=== PATIENT | male | born 1955 | race Caucasian/White ===

== ENCOUNTER 2019-05-02 16:37 | Emergency (ER) | payer MEDICARE ==
--- NOTE | 2019-05-02 18:16 | ED ---
Upper Extremity Pain - HPI Summary HPI Summary: This patient is a 63 year old M presenting to ED with a chief complaint of right hand/wrist pain and swelling since 1500 today. Patient was shopping at [employer] when a shelf fell on the lateral side of his right wrist. The patient rates the pain 7/10 in severity. Symptoms aggravated by nothing. Symptoms alleviated by nothing. Patient reports tingling and numbness in second and third digit and pain upon turning the wrist, bleeding from wrist. Patient denies fever. Patient is unsure of his last tetanus vaccine. PMHx of CAD, HTN, Afib, GERD, anxiety. PSHx of cholecystectomy. Patient denies tobacco and substance use. - History of Current Complaint Chief Complaint: EDExtremityUpper Stated Complaint: RT HAND INJURY PER PT Time Seen by Provider: 05/02/19 17:09 Hx Obtained From: Patient Mechanism Of Injury: Blunt Trauma Onset/Duration: Started Hours Ago - 1500 today, Traumatic, Still Present Severity Initially: Moderate Severity Currently: Moderate Pain Location: Wrist - Right, Hand - Right Aggravating Factor(s): Twisting Alleviating Factor(s): Nothing Associated Signs & Symptoms: Positive: Swelling, Numbness/Tingling. Negative: Fever - Allergies/Home Medications Allergies/Adverse Reactions: Allergies Allergy/AdvReac Type Severity Reaction Status Date / Time hydromorphone [From Dilaudid] Allergy Vomiting Verified 05/02/19 16:46 lisinopril Allergy tongue,lip Verified 05/02/19 16:46 swelling oxycodone [From Percocet] Allergy Vomiting Verified 05/02/19 16:46 PMH/Surg Hx/FS Hx/Imm Hx Endocrine/Hematology History: Reports: Hx Anticoagulant Therapy Denies: Hx Blood Disorders, Hx Blood Transfusions, Hx Bone Marrow Disease, Hx Diabetes, Hx Systemic Lupus Erythematosus, Hx Sickle Cell Disease, Hx Thyroid Disease, Hx Anemia, Hx Unexplained Bleeding Cardiovascular History: Reports: Hx Angina, Hx Coronary Artery Disease, Hx Hypertension, Hx Valvular Heart Disease - valce replacement Denies: Hx Aneurysm, Hx Angioplasty, Hx Auto Implanted Cardiovert Defib, Hx Cardiac Arrest, Hx Cardiomegaly, Hx Congenital Heart Disease, Hx Congestive Heart Failure, Hx Deep Vein Thrombosis, Hx Embolism, Hx Hypercholesterolemia, Hx Hypotension, Hx Pacemaker/ICD, Hx Peripheral Vascular Disease, Hx Rheumatic Fever, Hx Syncope, Other Cardiovascular Problems/Disorders GI History: Reports: Hx Gall Bladder Disease History: Denies: Hx Renal Disease Musculoskeletal History: Reports: Hx Arthritis, Hx Back Problems - back injury Sensory History: Reports: Hx Contacts or Glasses - reading Denies: Hx Hearing Aid Opthamlomology History: Reports: Hx Contacts or Glasses - reading Neurological History: Reports: Hx Headaches Psychiatric History: Reports: Hx Anxiety Denies: Hx Panic Disorder - Surgical History Surgery Procedure, Year, and Place: GALLBLADDER REMOVED 1989. AORTIC VALVE 04/12. OPEN HEART SURGERY 2007 Hx Anesthesia Reactions: No Infectious Disease History: No Infectious Disease History: Denies: Hx Clostridium Difficile, Hx Hepatitis, Hx Human Immunodeficiency Virus (HIV), Hx of Known/Suspected MRSA, Hx Shingles, Hx Tuberculosis, Hx Known/ Suspected VRE, Hx Known/Suspected VRSA, Traveled Outside the [place] in Last 30 Days - Family History Known Family History: Positive: Non-Contributory - Social History Alcohol Use: Rare Alcohol Amount: once every few months Hx Substance Use: No Substance Use Type: Reports: None Hx Tobacco Use: Yes Smoking Status (MU): Former Smoker Type: Cigarettes Amount Used/How Often: 2 PPD Length of Time of Smoking/Using Tobacco: 30 years Have You Smoked in the Last Year: No Review of Systems Negative: Fever Positive: Arthralgia - Right hand and wrist pain All Other Systems Reviewed And Are Negative: Yes Physical Exam - Summary Physical Exam Summary: VITAL SIGNS: Reviewed. GENERAL: Patient is a well-developed and nourished male who is lying comfortable in the stretcher. Patient is not in any acute respiratory distress. HEAD AND FACE: No signs of trauma. No ecchymosis, hematomas or skull depressions. No sinus tenderness. EYES: PERRLA, EOMI x 2, No injected conjunctiva, no nystagmus. EARS: Hearing grossly intact. Ear canals and tympanic membranes are within normal limits. MOUTH: Oropharynx within normal limits. NECK: Supple, trachea is midline, no adenopathy, no JVD, no carotid bruit, no c- spine tenderness, neck with full ROM. CHEST: Symmetric, no tenderness at palpation LUNGS: Clear to auscultation bilaterally. No wheezing or crackles. CVS: Regular rate and rhythm, S1 and S2 present, no murmurs or gallops appreciated. ABDOMEN: Soft, non-tender. No signs of distention. No rebound no guarding, and no masses palpated. Bowel sounds are normal. EXTREMITIES: FROM in all major joints, no edema, no cyanosis or clubbing. NEURO: Alert and oriented x 3. No acute neurological deficits. Speech is normal and follows commands. SKIN: abrasion on right wrist Triage Information Reviewed: Yes Vital Signs On Initial Exam: Initial Vitals Temp Pulse Resp BP Pulse Ox 98.4 F 79 16 149/86 94 05/02/19 16:42 05/02/19 16:42 05/02/19 16:42 05/02/19 16:42 05/02/19 16:42 Vital Signs Reviewed: Yes Diagnostics - Vital Signs Vital Signs Temp Pulse Resp BP Pulse Ox 05/02/19 16:42 98.4 F 79 16 149/86 94 - Laboratory Lab Statement: Any lab studies that have been ordered have been reviewed, and results considered in the medical decision making process. - Radiology Right wrist XR Radiology Interpretation Completed By: Radiologist Summary of Radiographic Findings: Degenerative changes of the right hand and wrist as described above without radiographically apparent acute fracture or dislocation. Dr. Zimmerman has reviewed this radiology report. Right hand XR Radiology Interpretation Completed By: Radiologist Summary of Radiographic Findings: Degenerative changes of the right hand and wrist as described above without radiographically apparent acute fracture or dislocation. Dr. Zimmerman has reviewed this radiology report. Course/Dx - Course Assessment/Plan: This patient is a 63 year old M presenting to ED with a chief complaint of right hand/wrist pain and swelling since 1500 today. Patient was shopping at [employer] when a shelf fell on the lateral side of his right wrist. The patient rates the pain 7/10 in severity. Symptoms aggravated by nothing. Symptoms alleviated by nothing. Patient reports tingling and numbness in second and third digit and pain upon turning the wrist, bleeding from wrist. Patient denies fever. Patient is unsure of his last tetanus vaccine. PMHx of CAD, HTN, Afib, GERD, anxiety. PSHx of cholecystectomy. Patient denies tobacco and substance use. X ray of hand and wrist impression: Degenerative changes of the right hand and wrist as described above without radiographically apparent acute fracture or dislocation. Patient has an a small abrasion in the right wrist and he is due for a tetanus vaccine. Last tetanus was approximately 10 years ago. At this point I discussed my physical exam, findings and test results with the patient and the need to follow-up with the primary care physician. Patient understands and agrees. - Diagnoses Provider Diagnoses: Wrist pain Discharge - Sign-Out/Discharge Documenting (check all that apply): Patient Departure - Discharge Patient Received Moderate/Deep Sedation with Procedure: No - Discharge Plan Condition: Stable Disposition: HOME Patient Education Materials: Wrist Injury (ED) Referrals: Jericho Grajeda MD [Primary Care Provider] - 3 Days Additional Instructions: FOLLOW UP WITH YOUR PRIMARY CARE PROVIDER WITHIN ONE WEEK. RETURN TO THE ED FOR ANY WORSENING OR NEW SYMPTOMS. - Billing Disposition and Condition Condition: STABLE Disposition: Home - Attestation Statements Document Initiated by Tonyibe: Yes Documenting Scribe: Pablo Lin Provider For Whom Ras is Documenting (Include Credential): Khang Zimmerman MD Scribe Attestation: Pablo Mcclain, scribed for Khang Zimmerman MD on 05/03/19 at 1015. Scribe Documentation Reviewed: Yes Provider Attestation: The documentation as recorded by the Pablo pop accurately reflects the service I personally performed and the decisions made by me, Khang Zimmerman MD Status of Scribe Document: Viewed
[2019-05-02] MEDS ORDERED: Tetan/Diph/Pertus SYR(Tdap)* 0.5 ML SYR(BOOSTRIX) use SYR IM ONE (18:45)
[2019-05-02 19:12] VITALS: BP 149/78
== END 2019-05-02 19:11 | disposition home or self-care (01) ==
LOC: ED 16:37
DX: M25.531 Pain in right wrist (principal); S60.811A Abrasion of right wrist, initial encounter; W20.8XXA Other cause of strike by thrown, projected or falling object, initial encounter; Y92.512 Supermarket, store or market as the place of occurrence of the external cause; Z23 Encounter for immunization; Z79.01 Long term (current) use of anticoagulants; Z95.2 Presence of prosthetic heart valve; Z95.1 Presence of aortocoronary bypass graft; Z88.5 Allergy status to narcotic agent; Z88.8 Allergy status to other drugs, medicaments and biological substances; Z87.891 Personal history of nicotine dependence
CPT/HCPCS: 90471; 90715; 99282